=== PATIENT | male | born 1985 | race Caucasian/White ===

== ENCOUNTER 2022-04-11 12:06 | Inpatient (IN) | payer SELFPAY ==
[2022-04-11 14:20] VITALS: BMI 19.0
[2022-04-11] MEDS ORDERED: Ondansetron PF 4 MG/2 ML Vial IVP PRN (14:57)
[2022-04-11] MEDS ORDERED: Diazepam 10 MG/2 ML SYRINGE IVP PRN (15:00)
[2022-04-11] MEDS ORDERED: Multivitamins, Adult 10 ML, Folic Acid 1 MG, Thiamine HCl 100 MG in Dextrose 5 %-0.45 %... IV SCH (15:15)
[2022-04-11] MEDS: Morphine 4 MG/ML VIAL SLOW IVP PRN ×2 (15:56→20:22)
[2022-04-11] MEDS ORDERED: Lorazepam (BATCHED) 2 MG/ML SYR SLOW IVP PRN (15:56)
[2022-04-11 16:15] LABS: Anion Gap 15 mmol/L (10-20); BUN (Urea Nitrogen) 12 mg/dL (8.9-20.6); Calc. Creatinine Clearance 80 mL/min (70-130); Calcium 7.5 mg/dL (7.8-10.44); Carbon Dioxide 26 mmol/L (22-29); Chloride 101 mmol/L (98-107); Estimated GFR 96; Glucose 98 mg/dL (70-105); Potassium 3.5 mmol/L (3.5-5.1); Sodium 138 mmol/L (136-145)
[2022-04-11] MEDS: Sodium Chloride 0.9% 1,000 ML IV SCH (17:04)
[2022-04-12] MEDS: Morphine 4 MG/ML VIAL SLOW IVP PRN ×6 (00:15→20:36)
[2022-04-12] MEDS ORDERED: Bisacodyl 5 MG TAB PO PRN (00:17)
[2022-04-12] MEDS ORDERED: Senokot S 8.6-50 MG TAB PO PRN (00:17)
[2022-04-12] MEDS: Sodium Chloride 0.9% 1,000 ML IV SCH ×3 (04:21→19:17)
[2022-04-12 06:31] LABS: Anion Gap 13 mmol/L (10-20); BUN (Urea Nitrogen) 5 mg/dL (8.9-20.6); Calc. Creatinine Clearance 107 mL/min (70-130); Calcium 7.5 mg/dL (7.8-10.44); Carbon Dioxide 26 mmol/L (22-29); Chloride 99 mmol/L (98-107); Estimated GFR 120; Glucose 96 mg/dL (70-105); Sodium 135 mmol/L (136-145)
[2022-04-12 06:35] LABS: Potassium 2.9 mmol/L (3.5-5.1)
[2022-04-12 06:42] LABS: #Eosinphils 0.1 thou/uL (0.0-0.7); #Lymphocytes 1.5 thou/uL (1.20-3.40); #Monocytes 0.7 thou/uL (0.11-0.59); #Neutrophils 5.1 thou/uL (1.40-6.50); %Basophils 0.6 % (0.0-1.0); %Eosinophils 1.7 % (0.0-10.0); %Lymphocytes 20.4 % (21.0-51.0); %Monocytes 8.8 % (0.0-10.0); %Neutrophils 68.6 % (42.0-75.0); Hemoglobin 11.8 g/dL (14.0-18.0); Mean Corpuscular HGB CONC 34.6 g/dL (32.0-36.0); Mean Corpuscular Hemoglobin 36.3 pg (27.0-31.0); Platelet Count 239 thou/uL (130-400); RBC Distribution Width 11.5 % (11.5-14.5); Red Blood Cell (RBC) Count 3.25 mill/uL (4.70-6.10); White Blood Cell (WBC) Count 7.4 thou/uL (4.8-10.8)
[2022-04-12] MEDS ORDERED: Electrolyte Replacement Protocol 1 EACH FS SCH (07:15)
[2022-04-12] MEDS ORDERED: Nicotine 21 MG PATCH TD PRN (08:03)
[2022-04-12] MEDS: Potassium Chloride 20 MEQ TAB PO SCH ×2 (08:12→12:01)
[2022-04-12] MEDS: Emtricitabine/Tenofovir 200-300 MG TAB PO SCH (08:16)
[2022-04-12] MEDS ORDERED: Enoxaparin Sodium 40 MG/0.4 ML SYRINGE SC SCH (09:00)
[2022-04-12] MEDS ORDERED: Enoxaparin Sodium 30 MG/0.3 ML SYRINGE SC SCH (09:00)
[2022-04-12] MEDS ORDERED: Lorazepam 1 MG TAB PO PRN (11:21)
[2022-04-12] MEDS ORDERED: Lorazepam 2 MG/ML VIAL IM PRN (11:21)
[2022-04-12 11:59] LABS: Magnesium 1.2 mg/dL (1.6-2.6)
[2022-04-12] MEDS ORDERED: Folic Acid 1 MG TAB PO SCH (12:30)
[2022-04-12] MEDS: Lorazepam 1 MG TAB PO SCH ×3 (12:34→23:58)
[2022-04-12] MEDS ORDERED: Multivit, Therapeutic 1 TAB PO SCH (12:45)
[2022-04-12] MEDS ORDERED: Magnesium Sulfate In Water 4 GM in Premix Bag 1 BAG IVPB SCH (13:00)
[2022-04-12 13:18] LABS: Phosphorus 1.8 mg/dL (2.3-4.7)
[2022-04-12] MEDS: Thiamine HCl 200 MG/2 ML VIAL SLOW IVP SCH (13:46)
[2022-04-12] MEDS ORDERED: Potassium Chloride 20 MEQ in Premix Bag 1 BAG IVPB SCH (14:00)
[2022-04-12 14:21] LABS: Amphetamine Not Detected (NotDetected); Barbiturates Screen Not Detected (NotDetected); Benzodiazepine Screen Not Detected (NotDetected); Cocaine Metabolite Screen Not Detected (NotDetected); Methadone Not Detected (NotDetected); Methamphetamine Not Detected (NotDetected); Opiate Screen Detected (NotDetected); Oxycodone Screen Not Detected (NotDetected); Phencyclidine (PCP) Not Detected (NotDetected); THC/Cannabinoid Screen Not Detected (NotDetected); Tricyclic Screen Not Detected (NotDetected)
[2022-04-12 14:58] LABS: Syphilis Antibody Nonreactive (Nonreactive); Syphilis Antibody Index 0.36 S/CO (<1.00 Non-Reactive)
[2022-04-12] MEDS ORDERED: Potassium Phosphate 15 MMOL in Sodium Chloride 0.9% 100 ML IVPB SCH (15:00)
[2022-04-12] MEDS ORDERED: Iopamidol-370 76% 500 ML 1 ML ONE (15:13)
[2022-04-12] MEDS ORDERED: VANCOMYCIN 1.25 GM/250 ML BAG 1.25 GM in Premix Bag 1 BAG IVPB SCH (19:00)
[2022-04-12] MEDS: cefTRIAXone\\ROCEPHIN 2 GM in Sodium Chloride 0.9% 100 ML IVPB SCH (20:38)
[2022-04-13] MEDS: Morphine 4 MG/ML VIAL SLOW IVP PRN ×5 (00:47→21:59)
[2022-04-13] MEDS: Lorazepam 1 MG TAB PO SCH ×4 (05:47→23:50)
[2022-04-13] MEDS: VANCOMYCIN 1.25 GM/250 ML BAG 1.25 GM in Premix Bag 1 BAG IVPB SCH ×3 (05:47→22:00)
[2022-04-13] MEDS: Sodium Chloride 0.9% 1,000 ML IV SCH ×3 (07:16→17:03)
[2022-04-13 07:24] LABS: Anion Gap 10 mmol/L (10-20); BUN (Urea Nitrogen) Less than 4 mg/dL (8.9-20.6); Calc. Creatinine Clearance 117 mL/min (70-130); Calcium 7.9 mg/dL (7.8-10.44); Carbon Dioxide 26 mmol/L (22-29); Chloride 100 mmol/L (98-107); Estimated GFR 123; Glucose 90 mg/dL (70-105); Magnesium 1.7 mg/dL (1.6-2.6); Phosphorus 2.2 mg/dL (2.3-4.7); Potassium 3.1 mmol/L (3.5-5.1); Sodium 133 mmol/L (136-145)
[2022-04-13] MEDS: Multivit, Therapeutic 1 TAB PO SCH (08:40)
[2022-04-13] MEDS: Folic Acid 1 MG TAB PO SCH (08:40)
[2022-04-13] MEDS: Emtricitabine/Tenofovir 200-300 MG TAB PO SCH (08:40)
[2022-04-13] MEDS: Enoxaparin Sodium 40 MG/0.4 ML SYRINGE SC SCH (08:40)
[2022-04-13] MEDS ORDERED: Potassium Chloride 20 MEQ TAB PO SCH (09:30)
[2022-04-13] MEDS ORDERED: Magnesium 2 GM/50 ML(in water) 2 GM in Premix Bag 1 BAG IVPB SCH (10:00)
[2022-04-13] MEDS ORDERED: Lorazepam 1 MG TAB PO PRN (11:22)
[2022-04-13] MEDS: Thiamine HCl 200 MG/2 ML VIAL SLOW IVP SCH (14:21)
[2022-04-13] MEDS: NS 0.9% w/ 20 MEQ KCL 1,000 ML/1,000 ML BAG IV SCH ×2 (17:43→23:47)
[2022-04-13] MEDS: traMADol HCl 50 MG TAB PO PRN (19:42)
[2022-04-13] MEDS: cefTRIAXone\\ROCEPHIN 2 GM in Sodium Chloride 0.9% 100 ML IVPB SCH (19:43)
[2022-04-13 21:31] LABS: Vancomycin, Trough 18.1 ug/mL
[2022-04-14] MEDS: traMADol HCl 50 MG TAB PO PRN (01:34)
[2022-04-14] MEDS: Lorazepam 1 MG TAB PO SCH (04:32)
[2022-04-14] MEDS: Morphine 4 MG/ML VIAL SLOW IVP PRN ×4 (04:32→20:22)
[2022-04-14] MEDS: VANCOMYCIN 1.25 GM/250 ML BAG 1.25 GM in Premix Bag 1 BAG IVPB SCH ×3 (05:28→21:54)
[2022-04-14] MEDS: NS 0.9% w/ 20 MEQ KCL 1,000 ML/1,000 ML BAG IV SCH ×3 (05:54→20:15)
[2022-04-14 07:10] LABS: ALT (SGPT) 15 U/L (8-55); AST (SGOT) 30 U/L (5-34); Albumin 2.7 g/dL (3.5-5.0); Alkaline Phosphatase 77 U/L (40-110); Anion Gap 9 mmol/L (10-20); BUN (Urea Nitrogen) Less than 4 mg/dL (8.9-20.6); Bilirubin, Total 0.7 mg/dL (0.2-1.2); Calc. Creatinine Clearance 120 mL/min (70-130); Calcium 8.1 mg/dL (7.8-10.44); Carbon Dioxide 26 mmol/L (22-29); Chloride 105 mmol/L (98-107); Estimated GFR 124; Globulin 2.8 g/dL (2.4-3.5); Glucose 79 mg/dL (70-105); Lipase 124 U/L (8-78); Magnesium 1.6 mg/dL (1.6-2.6); Phosphorus 3.5 mg/dL (2.3-4.7); Potassium 3.7 mmol/L (3.5-5.1); Protein, Total 5.5 g/dL (6.0-8.3); Sodium 136 mmol/L (136-145)
[2022-04-14] MEDS ORDERED: Magnesium 2 GM/50 ML(in water) 2 GM in Premix Bag 1 BAG IVPB SCH (08:00)
[2022-04-14] MEDS: Enoxaparin Sodium 40 MG/0.4 ML SYRINGE SC SCH (08:53)
[2022-04-14] MEDS: GENVOYA PO SCH (08:53)
[2022-04-14] MEDS: Folic Acid 1 MG TAB PO SCH (08:53)
[2022-04-14] MEDS: Pantoprazole 40 MG VIAL IVP SCH (08:53)
[2022-04-14] MEDS: Multivit, Therapeutic 1 TAB PO SCH (08:53)
[2022-04-14] MEDS ORDERED: Lorazepam 1 MG TAB PO PRN (11:22)
[2022-04-14] MEDS: Thiamine HCl 200 MG/2 ML VIAL SLOW IVP SCH (12:25)
[2022-04-14] MEDS: Lorazepam 0.5 MG TAB PO SCH ×3 (12:25→23:20)
[2022-04-14] MEDS: cefTRIAXone\\ROCEPHIN 2 GM in Sodium Chloride 0.9% 100 ML IVPB SCH (20:14)
[2022-04-15] MEDS: Morphine 4 MG/ML VIAL SLOW IVP PRN ×2 (01:06→09:13)
[2022-04-15] MEDS: NS 0.9% w/ 20 MEQ KCL 1,000 ML/1,000 ML BAG IV SCH ×4 (01:09→20:52)
[2022-04-15] MEDS: traMADol HCl 50 MG TAB PO PRN ×3 (05:26→20:47)
[2022-04-15] MEDS: Lorazepam 0.5 MG TAB PO SCH (05:27)
[2022-04-15] MEDS: VANCOMYCIN 1.25 GM/250 ML BAG 1.25 GM in Premix Bag 1 BAG IVPB SCH ×2 (05:52→15:52)
[2022-04-15 06:16] LABS: #Eosinphils 0.2 thou/uL (0.0-0.7); #Lymphocytes 1.4 thou/uL (1.20-3.40); #Monocytes 0.6 thou/uL (0.11-0.59); #Neutrophils 3.9 thou/uL (1.40-6.50); %Basophils 0.5 % (0.0-1.0); %Eosinophils 3.4 % (0.0-10.0); %Monocytes 10.1 % (0.0-10.0); Hemoglobin 9.8 g/dL (14.0-18.0); Mean Corpuscular HGB CONC 33.4 g/dL (32.0-36.0); Mean Corpuscular Hemoglobin 36.1 pg (27.0-31.0); Mean Platelet Volume 6.9 fL (7.4-10.4); Platelet Count 255 thou/uL (130-400); RBC Distribution Width 11.8 % (11.5-14.5); Red Blood Cell (RBC) Count 2.72 mill/uL (4.70-6.10); White Blood Cell (WBC) Count 6.2 thou/uL (4.8-10.8)
[2022-04-15 06:39] LABS: ALT (SGPT) 23 U/L (8-55); AST (SGOT) 44 U/L (5-34); Albumin 2.7 g/dL (3.5-5.0); Alkaline Phosphatase 94 U/L (40-110); Anion Gap 9 mmol/L (10-20); BUN (Urea Nitrogen) Less than 4 mg/dL (8.9-20.6); Bilirubin, Total 0.3 mg/dL (0.2-1.2); Calc. Creatinine Clearance 100 mL/min (70-130); Calcium 8.1 mg/dL (7.8-10.44); Carbon Dioxide 28 mmol/L (22-29); Chloride 105 mmol/L (98-107); Estimated GFR 117; Globulin 2.7 g/dL (2.4-3.5); Glucose 115 mg/dL (70-105); Magnesium 1.5 mg/dL (1.6-2.6); Phosphorus 3.7 mg/dL (2.3-4.7); Potassium 3.9 mmol/L (3.5-5.1); Protein, Total 5.4 g/dL (6.0-8.3); Sodium 138 mmol/L (136-145)
[2022-04-15] MEDS ORDERED: Enoxaparin Sodium 30 MG/0.3 ML SYRINGE SC SCH (09:00)
[2022-04-15] MEDS ORDERED: Magnesium 2 GM/50 ML(in water) 2 GM in Premix Bag 1 BAG IVPB SCH (09:00)
[2022-04-15] MEDS: Folic Acid 1 MG TAB PO SCH (09:02)
[2022-04-15] MEDS: Multivit, Therapeutic 1 TAB PO SCH (09:02)
[2022-04-15] MEDS: Pantoprazole 40 MG VIAL IVP SCH (09:02)
[2022-04-15] MEDS: Thiamine 100 MG TAB PO SCH (09:02)
[2022-04-15] MEDS: GENVOYA PO SCH (09:03)
[2022-04-15] MEDS ORDERED: Lorazepam 0.5 MG TAB PO PRN (11:22)
[2022-04-15] MEDS: cefTRIAXone\\ROCEPHIN 2 GM in Sodium Chloride 0.9% 100 ML IVPB SCH (20:46)
[2022-04-15] MEDS ORDERED: VANCOMYCIN 1.25 GM/250 ML BAG 1.25 GM in Premix Bag 1 BAG IVPB SCH (21:45)
[2022-04-16] MEDS: Morphine 4 MG/ML VIAL SLOW IVP PRN (00:12)
[2022-04-16] MEDS: NS 0.9% w/ 20 MEQ KCL 1,000 ML/1,000 ML BAG IV SCH ×2 (03:26→10:48)
[2022-04-16 03:40] LABS: #Basophils 0.1 thou/uL (0.0-0.2); #Eosinphils 0.2 thou/uL (0.0-0.7); #Lymphocytes 2.3 thou/uL (1.20-3.40); #Monocytes 0.7 thou/uL (0.11-0.59); #Neutrophils 4.8 thou/uL (1.40-6.50); %Basophils 0.8 % (0.0-1.0); %Eosinophils 2.9 % (0.0-10.0); %Lymphocytes 27.9 % (21.0-51.0); %Monocytes 9.1 % (0.0-10.0); %Neutrophils 59.3 % (42.0-75.0); Mean Corpuscular HGB CONC 33.7 g/dL (32.0-36.0); Mean Platelet Volume 7.9 fL (7.4-10.4); Platelet Count 274 thou/uL (130-400); Red Blood Cell (RBC) Count 2.98 mill/uL (4.70-6.10); White Blood Cell (WBC) Count 8.1 thou/uL (4.8-10.8)
[2022-04-16 04:04] LABS: Vancomycin, Random 14.8 ug/mL (See Comment)
[2022-04-16 04:11] LABS: ALT (SGPT) 25 U/L (8-55); AST (SGOT) 41 U/L (5-34); Albumin 3.2 g/dL (3.5-5.0); Alkaline Phosphatase 115 U/L (40-110); Anion Gap 11 mmol/L (10-20); BUN (Urea Nitrogen) Less than 4 mg/dL (8.9-20.6); Bilirubin, Total 0.4 mg/dL (0.2-1.2); Calc. Creatinine Clearance 107 mL/min (70-130); Calcium 8.7 mg/dL (7.8-10.44); Carbon Dioxide 30 mmol/L (22-29); Chloride 104 mmol/L (98-107); Estimated GFR 120; Globulin 3.4 g/dL (2.4-3.5); Glucose 95 mg/dL (70-105); Magnesium 1.6 mg/dL (1.6-2.6); Phosphorus 4.5 mg/dL (2.3-4.7); Potassium 3.7 mmol/L (3.5-5.1); Protein, Total 6.6 g/dL (6.0-8.3); Sodium 141 mmol/L (136-145)
[2022-04-16] MEDS: Vancomycin 1 GM in Premix Bag 1 BAG IVPB SCH ×2 (04:27→13:21)
[2022-04-16] MEDS: traMADol HCl 50 MG TAB PO PRN ×2 (04:39→16:40)
[2022-04-16] MEDS ORDERED: Magnesium 2 GM/50 ML(in water) 2 GM in Premix Bag 1 BAG IVPB SCH (05:00)
[2022-04-16 09:31] VITALS: BP 136/85; TEMP 97.7
[2022-04-16] MEDS: Folic Acid 1 MG TAB PO SCH (10:41)
[2022-04-16] MEDS: Multivit, Therapeutic 1 TAB PO SCH (10:41)
[2022-04-16] MEDS: Enoxaparin Sodium 40 MG/0.4 ML SYRINGE SC SCH ×2 (10:41→10:48)
[2022-04-16] MEDS: Pantoprazole 40 MG VIAL IVP SCH (10:42)
[2022-04-16] MEDS: GENVOYA PO SCH (10:42)
[2022-04-16] MEDS: Thiamine 100 MG TAB PO SCH (10:42)
== END 2022-04-16 17:29 | disposition home or self-care (01) | DRG 439 ==
LOC: T4-B 13:38 → OBSVTOIN 14:57
PROVIDERS: ADMIT Internal Medicine; ATTEND Internal Medicine
DX: K85.20 Alcohol induced acute pancreatitis without necrosis or infection (principal); K86.3 Pseudocyst of pancreas; L02.212 Cutaneous abscess of back [any part, except buttock and flank]; Z21 Asymptomatic human immunodeficiency virus [HIV] infection status; F17.210 Nicotine dependence, cigarettes, uncomplicated; E87.6 Hypokalemia; F10.10 Alcohol abuse, uncomplicated; E83.42 Hypomagnesemia; E83.39 Other disorders of phosphorus metabolism; L72.8 Other follicular cysts of the skin and subcutaneous tissue; Z91.018 Allergy to other foods; Z98.890 Other specified postprocedural states; Z82.49 Family history of ischemic heart disease and other diseases of the circulatory system; Z83.79 Family history of other diseases of the digestive system; Z82.0 Family history of epilepsy and other diseases of the nervous system; Z79.899 Other long term (current) drug therapy
CPT/HCPCS: 36415; 74177; 80048; 80053; 80202; 80306; 83690; 83735; 84100; 85025; 86780; 97139; C9113; J0696; J1650; J2270; J3370; J3411; J3475; J3480; J3490; J7042; J7050; Q9967